=== PATIENT | female | born 1985 | race Two or more races ===

== ENCOUNTER 2023-10-31 13:15 | Inpatient (IN) | payer OTHER ==
[~2023-10-31] VITALS: Ht 162.6 cm; Wt 87.1 kg
[~2023-10-31 13:15] MED LIST: COLACE100 MG PO; FOLIC ACID20 MG PO; IRON325 MG PO; PEPCID AC20 MG PO; PRENATAL TABLE1 EAC1 PO
[2023-11-11] MEDS ORDERED: RINGERS SOLUTION,LACTATED 1,000 ML IV SCH (22:45)
[2023-11-11] MEDS ORDERED: MORPHINE SULFATE 4 MG/ML VIAL IV PRN (23:15)
[2023-11-11 23:27] LABS: HEMATOCRIT 34.9 % (36.0-45.00); HEMOGLOBIN 11.9 g/dL (12.0-15.00); MEAN CELL VOLUME 85.7 fL (80.00-100.00); MEAN CORPUSCULAR HEMOGLOBIN 29.2 pg (27.00-32.0); MEAN CORPUSCULAR HGB CONC 34.1 g/dl (32.0-36.0); PLATELET COUNT 219 K/uL (150-450); RED BLOOD COUNT 4.07 M/uL (4.00-6.00); RED CELL DISTRIBUTION WIDTH 17.1 % (11.5-14.5)
[2023-11-11 23:58] LABS: ALBUMIN 3.2 gm/dL (3.4-5.0); BILIRUBIN TOTAL 0.83 mg/dL (0.3-1.2); CALCIUM 9.4 mg/dL (8.5-10.1); CREATININE SERUM 0.52 mg/dL (0.55-1.02); GFR 133.43; GLOBULINA 3.2 G/DL (2.4-3.5); INR 1.01; PARTIAL THROMBOPLASTIN TIME 26.1 SECONDS (22.0-34.0); POTASSIUM 4.29 mEq/L (3.5-5.1); PROTHROMBIN TIME 10.6 SECONDS (9.0-11.5); TOTAL PROTEIN 6.4 gm/dL (6.4-8.2)
[2023-11-12] MEDS ORDERED: FAMOTIDINE/PF 20 MG/2 ML VIAL IV PRN (03:45)
[2023-11-12] MEDS ORDERED: FAMOTIDINE/PF 20 MG/2 ML VIAL ONE (03:45)
[2023-11-12] MEDS ORDERED: ERYTHROMYCIN BASE 1 GM TUBE OP ONE (04:30)
[2023-11-12] MEDS ORDERED: OXYTOCIN 20 UNITS/1000ML RL PIGGYBAG IV ONE (04:30)
[2023-11-12] MEDS ORDERED: CHLORHEXIDINE GLUCONATE 120 ML BOTTLE TOP ONE (04:31)
[2023-11-12] MEDS ORDERED: LIDOCAINE HCL 1% 10ML VIAL ONE (04:31)
[2023-11-12] MEDS ORDERED: ERYTHROMYCIN BASE 1 GM TUBE OP SCH (06:45)
[2023-11-12] MEDS ORDERED: IBUprofen 400 MG TABLET PO PRN (06:45)
[2023-11-12] MEDS ORDERED: CHLORHEXIDINE GLUCONATE 120 ML BOTTLE TOP SCH (06:45)
[2023-11-12] MEDS ORDERED: OXYTOCIN 1,000 ML IV SCH (06:45)
[2023-11-12] MEDS ORDERED: PNV,CALCIUM 72/IRON/FOLIC ACID 1 TAB TABLET PO SCH (09:00)
[2023-11-12] MEDS ORDERED: DOCUSATE SODIUM 100MG CAP PO SCH (09:00)
[2023-11-12 17:45] LABS: HEMATOCRIT 31.9 % (36.0-45.00); HEMOGLOBIN 10.7 g/dL (12.0-15.00); MEAN CELL VOLUME 86.5 fL (80.00-100.00); MEAN CORPUSCULAR HEMOGLOBIN 29.1 pg (27.00-32.0); MEAN CORPUSCULAR HGB CONC 33.6 g/dl (32.0-36.0); PLATELET COUNT 197 K/uL (150-450); RED BLOOD COUNT 3.69 M/uL (4.00-6.00); RED CELL DISTRIBUTION WIDTH 17.1 % (11.5-14.5)
== END 2023-11-14 13:14 | disposition home or self-care (01) | DRG 807 ==
LOC: LDR 11-11 20:51 → OB/GYN 11-11 20:51 → LDR 11-11 21:17 → OB/GYN 11-12 08:18
PROVIDERS: Obstetrics & Gynecology Gynecology; ADMIT Obstetrics & Gynecology Maternal & Fetal Medicine; ATTEND Obstetrics & Gynecology Maternal & Fetal Medicine
PROC: 4A1HXCZ Monitoring of Products of Conception, Cardiac Rate, External Approach (ICD-10-PCS; 2023-11-11)
PROC: 10E0XZZ Delivery of Products of Conception, External Approach (ICD-10-PCS; principal; 2023-11-12)
PROC: 0KQM0ZZ Repair Perineum Muscle, Open Approach (ICD-10-PCS; 2023-11-12)
DX: O70.1 Second degree perineal laceration during delivery (principal); Z37.0 Single live birth; Z3A.38 38 weeks gestation of pregnancy; Z20.822 Contact with and (suspected) exposure to COVID-19

== ENCOUNTER 2023-11-05 12:30 | Outpatient (CLI) | payer OTHER | END 2023-11-05 13:48 | disposition home or self-care (01) | LOC: NST 12:30 | PROVIDERS: ATTEND Obstetrics & Gynecology Maternal & Fetal Medicine | DX: Z34.83 Encounter for supervision of other normal pregnancy, third trimester (principal) ==

== ENCOUNTER 2023-11-11 07:48 | Outpatient (CLI) | payer OTHER | END 2023-11-11 08:43 | disposition home or self-care (01) | LOC: NST 07:48 | PROVIDERS: ATTEND Obstetrics & Gynecology Maternal & Fetal Medicine | DX: Z34.83 Encounter for supervision of other normal pregnancy, third trimester (principal) ==